=== PATIENT | female | born 1950 | race Caucasian/White ===

== ENCOUNTER → 2017-12-15 | Outpatient (CLI) | payer MEDICARE | LOC: M.RAD 09:52 | DX: Z12.31 Encounter for screening mammogram for malignant neoplasm of breast (principal) ==

== ENCOUNTER → 2018-02-07 | Outpatient (CLI) | payer MEDICARE | LOC: M.RAD 15:16 | DX: M81.0 Age-related osteoporosis without current pathological fracture (principal); Z78.0 Asymptomatic menopausal state ==

== ENCOUNTER → 2018-12-25 | Outpatient (CLI) | payer MEDICARE ==
[~2018-12-25] MED LIST: OSELB75 PO; PREDNISONE 10 M10 M1 PO; PROLIA60 MG/1 ML SUBQ; ZOFRAN4 MG PO
== END ==
LOC: M.RAD 07:00
DX: Z12.31 Encounter for screening mammogram for malignant neoplasm of breast (principal)

== ENCOUNTER 2019-11-25 14:25 | Emergency (ER) | payer MEDICARE ==
[~2019-11-25] VITALS: Ht 154.9 cm; Wt 54.4 kg
[2019-11-25] MEDS ORDERED: TORADOL 10 MG T10 MG PO (19:24)
[2019-11-25] MEDS ORDERED: DIAZEPAM 5 MG5 MG PO (19:24)
[2019-11-25 19:41] VITALS: BP 131/76
== END 2019-11-25 19:43 | disposition home or self-care (01) ==
LOC: M.ERS 14:25
DX: S63.592A Other specified sprain of left wrist, initial encounter (principal); S70.02XA Contusion of left hip, initial encounter; Z96.643 Presence of artificial hip joint, bilateral; W01.0XXA Fall on same level from slipping, tripping and stumbling without subsequent striking against object, initial encounter; Y93.89 Activity, other specified; Y92.89 Other specified places as the place of occurrence of the external cause; Y99.8 Other external cause status

== ENCOUNTER → 2019-12-27 | Outpatient (CLI) | payer MEDICARE ==
[~2019-12-27] MED LIST changes: +DIAZEPAM 5 MG5 MG PO; +TORADOL 10 MG T10 MG PO
== END ==
LOC: M.RAD 09:45
PROVIDERS: ATTEND Family Medicine
DX: Z12.31 Encounter for screening mammogram for malignant neoplasm of breast (principal)

== ENCOUNTER → 2020-02-10 | Outpatient (CLI) | payer MEDICARE | LOC: M.RAD 13:30 | PROVIDERS: ATTEND Internal Medicine Endocrinology, Diabetes & Metabolism | DX: M85.88 Other specified disorders of bone density and structure, other site (principal); M81.0 Age-related osteoporosis without current pathological fracture ==

== ENCOUNTER → 2020-12-28 | Outpatient (CLI) | payer MEDICARE | LOC: M.RAD 07:14 | PROVIDERS: ATTEND Nurse Practitioner Family | DX: Z12.31 Encounter for screening mammogram for malignant neoplasm of breast (principal) ==